=== PATIENT | male | born 1985 | race Two or more races ===

== ENCOUNTER 2018-02-18 14:21 | Emergency (ER) | payer OTHER ==
[~2018-02-18] VITALS: Ht 170.2 cm; Wt 83.9 kg
[2018-02-18] MEDS ORDERED: Tetracaine 0.5% Opth 4ml Soln RIGHT EYE ONE (16:00)
[2018-02-18] MEDS ORDERED: Fluorescein Strips RIGHT EYE ONE (16:00)
[2018-02-18] MEDS ORDERED: Norco 5mg/325mg tab ORAL ONE (16:00)
[2018-02-18 16:15] VITALS: BP 142/101
[2018-02-18] MEDS ORDERED: Tetanus/Diptheria/Pertussis Vaccine 0.5ml Syr IM ONE (16:15)
[2018-02-18] MEDS ORDERED: Ciprofloxacin Opth Soln 2.5ml LEFT EYE ONE (17:30)
[2018-02-18] MEDS ORDERED: TYLENOL EXTRA500 MG ORAL (17:41)
[2018-02-18] MEDS ORDERED: CILOXAN 0.3% O1 DROP RIGHT EYE (17:41)
--- NOTE | 2018-02-18 17:44 | Consultation ---
Consult Note Consult Note Ophthalmology Emergency Room Consultation Referring Physician: Parish Linares Reason for Consultation: corneal foreign body History of the present illness: The patient is a 32-year-old man who reports that he was grinding metal at work 4 days ago. Today he reported worsening foreign body sensation and redness in the right eye. Past medical Hx: none Medications: none Allergies: NKDA Family History: non-contributory Social History: Review of Systems: General: no fever HEENT: see HPI Cardiac: no chest pain Respiratory: no shortness of breath GI: no nausea : no urinary complaints MS: no joint pains Derm: no rashes Psychiatric: no depression Neurologic: no numbness, no weakness Heme: no easy bruising Examination: Mini-mental status examination revealed the patient to be awake, alert and oriented to person, place and time with appropriate mood and affect. Visual Acuity: OD: 20/20 OS: 20/20 Intraocular pressure: OD: 19 mmHg OS: 21 mmHg Pupils: equal, round and reactive to light, without afferent pupillary defect in either eye Extra-ocular motility: full OU Confrontational visual edge: full to finger counting OU Anterior Segments: External: normal lids and orbits OU Conjunctivae: diffuse injection OD; white and quiet OS Cornea: metallic foreign body inferior to visual axis; Clear OS Anterior Chambers: Deep and Quiet OU Irides: Round and flat OU Lenses: Clear OU Dilated Fundus Examination (tropicamide 1%): Vitreous: Clear OU Optic Nerves: Sharp OU Vessels: Normal course and caliber OU Maculae: Flat OU Periphery: normal OU Studies: external photographs were taken of the anterior segment documenting the above findings . Assessment/Plan . Impression: 1. Corneal foreign body OD Assessment and Plan: This is a 32-year-old man with a metallic corneal foreign body in the right eye. Fortunately the the foreign body is inferior to the visual axis. The foreign body was removed at the slit lamp under topical anesthesia with a 27 gauge needle. The rust was scraped from the cornea. The patient should be started on topical antibiotic drops (cipro 1 drop OD QID) and should have follow up with an Pie Chef this week. He was given a tetanus shot in the ER. Eye protection at work is encouraged. Thank you very much for this consultation Daya Dailey M.D. [phone] DAYA DAILEY February 18, 2018 17:44
[2018-02-18 18:08] VITALS: BP 142/101
--- NOTE | 2018-02-19 00:06 | Emergency Room Report ---
History of Present Illness General Chief Complaint: Eye Problems Source: Patient Present Illness HPI 32-year-old male presents to the emergency department complaining of 10 out of 10 in severity pain, erythema, increased lacrimation and foreign body sensation in the right eye. Patient states that while he was at work he was drilling a piece of metal up above his head when a piece of metal fell into his eye. Patient states that he can visibly see metallic foreign body. He states he is not up-to-date with his tetanus vaccination he denies appreciable changes in his vision. Patient denies bleeding or discharge. He denies contact lens use. Allergies: Coded Allergies: No Known Allergies (Unverified , 02/18/18) Patient History Past Medical History: see triage record Past Surgical History: none Pertinent Family History: none Immunizations: other Reviewed Nursing Documentation: PMH: Agreed; PSxH: Agreed Nursing Documentation-PMH Past Medical History: No Stated History Review of Systems All Other Systems: negative except mentioned in HPI Physical Exam Vital Signs Date Time Temp Pulse Resp B/P (MAP) Pulse Ox O2 Delivery O2 Flow Rate FiO2 02/18/18 14:38 98.5 60 16 142/101 96 Room Air 98.4 Sp02 EP Interpretation: reviewed, normal General Appearance: no apparent distress, alert, GCS 15, non-toxic Head: normocephalic, atraumatic Eyes: bilateral eye normal inspection, bilateral eye PERRL, bilateral eye fluoroscene uptake, bilateral eye visual acuity - 20/20 bilaterally, right eye is 20/45 , and left eye 20/25, bilateral eye Scleral Injection, bilateral eye other - FB is noted in the 4 0'clock position over the colored iris of the right eye. less than 1mm in size and does not cross the pupil, metallic appearance, increased lacrimation ENT: hearing grossly normal, normal voice Neck: full range of motion Respiratory: chest non-tender, lungs clear, normal breath sounds, speaking full sentences Cardiovascular #1: regular rate, rhythm, no edema Gastrointestinal: normal bowel sounds, non tender, soft Rectal: deferred Genitourinary: normal inspection Musculoskeletal: back normal, gait/station normal, normal range of motion, non- tender Neurologic: alert, oriented x3, responsive, motor strength/tone normal, sensory intact, speech normal, grossly normal Psychiatric: judgement/insight normal Skin: normal color, no rash, warm/dry, well hydrated Lymphatic: no adenopathy Medical Decision Making PA Attestation Dr. Mcdonald is my supervising Physician whom patient management has been discussed with. Diagnostic Impression: Primary Impression: Corneal FB (foreign body) Qualified Codes: T15.01XA - Foreign body in cornea, right eye, initial encounter ER Course 32-year-old male presents to the emergency department complaining of 10 out of 10 in severity pain, erythema, increased lacrimation and foreign body sensation in the right eye. Patient states that while he was at work he was drilling a piece of metal up above his head when a piece of metal fell into his eye. Patient states that he can visibly see metallic foreign body. He states he is not up-to-date with his tetanus vaccination he denies appreciable changes in his vision. Patient denies bleeding or discharge. He denies contact lens use. Ddx considered but are not limited to: corneal abrasion, globe rupture, FB, Corneal Ulcer, conjunctivitis. Iridis Vital signs: are WNL, pt. is afebrile H&PE are most consistent with: EYE Foreign Body ORDERS: Tetracaine and Fluorescein Stain of the right eye shows uptake about small piece of single metallic FB, no sidel sign or evidence of rupture or abrasion. FB is noted in the 4 0'clock position over the colored iris of the right eye. less than 1mm in size and does not cross the pupil, metallic appearance ED INTERVENTIONS: -Tdap administered -Cipro Ophtho drop into right eye On-call spray dry operator Dr. Dailey was contacted/consulted.He came to the emergency department to perform foreign body removal. -Will DC patient with antibiotic eyedrops and strict instructions to followup with ophthalmology.- Pt verbalizes understanding and agreement with proposed treatment plan. He is given Dr. Dailey's office referral information. DISCHARGE: At this time pt. is stable for d/c to home. Will provide printed patient care instructions, and any necessary prescriptions. Care plan and follow up instructions have been discussed with the patient prior to discharge. Last Vital Signs Date Time Temp Pulse Resp B/P (MAP) Pulse Ox O2 Delivery O2 Flow Rate FiO2 02/18/18 18:08 98.4 96 20 142/101 97 Room Air 98.0 Disposition: HOME, SELF-CARE Condition: Stable Scripts Acetaminophen* (TYLENOL EXTRA STRENGTH*) 500 Mg Tablet 500 MG ORAL Q8H, #20 TAB 0 Refills Prov: Cecelia Fang 02/18/18 Ciprofloxacin (Ciprofloxacin HCl) 2.5 Ml Drops 2 DROP RIGHT EYE QID for 7 Days, #2.5 ML Prov: Cecelia Fang 02/18/18 Referrals: NOT CHOSEN IPA/MD,REFERRING (PCP) DAYA DAILEY Patient Instructions: Eye Foreign Body Additional Instructions: Take medications as directed. Follow up with a Ophthalmology Follow-up in 3-5 days, even if your symptoms have resolved. --Please review list of primary care clinics, if you do not already have a primary care provider Return sooner to ED if new symptoms occur, or current symptoms become worse. - Please note that this Emergency Department Report was dictated using [employer] machine technology software, occasionally this can lead to erroneous entry secondary to interpretation by the dictation equipment. Cecelia Fang February 19, 2018 00:06
== END 2018-02-18 18:10 | disposition home or self-care (01) ==
LOC: EMR 16:07
DX: T15.01XA Foreign body in cornea, right eye, initial encounter (principal); X58.XXXA Exposure to other specified factors, initial encounter; Y92.89 Other specified places as the place of occurrence of the external cause; Y99.0 Civilian activity done for income or pay; Z23 Encounter for immunization
CPT/HCPCS: 90471; 90715; 96372; 99284